=== PATIENT | female | born 1985 | race Caucasian/White ===

== ENCOUNTER 2016-06-26 17:51 | Emergency (ER) | payer OTHER ==
--- NOTE | 2016-06-26 18:48 | DIAGNOSTIC IMAGING REPORT ---
PROCEDURE: XR ELBOW 3 OR 4 VIEWS - RIGHT INDICATION: TRAUMA/INJURY TECHNIQUE: Four views. COMPARISON: Right elbow x-ray 08/04/2015 FINDINGS: Interval right elbow arthroplasty with radiolucency around the humeral and on the component measuring up to 1 mm. Removal of prior radial head prosthesis with soft tissue calcifications in the surgical site. There is no acute fracture or dislocation. IMPRESSION: 1. Right elbow arthroplasty without fracture. There is radiolucency around the humeral and ulnar components and loosening is a consideration. 2. Removal of radial head prosthesis
--- NOTE | 2016-06-26 19:02 | ED ORDER SUMMARY ---
..... Patient: IRAM BORDEN V OrderSheet [facility] VisitID: [id number] [address] [place] [address] 30y, F Registration Date/Time: 06/26/2016 ORDER SHEET Weight: 86.1 kg (stated) Allergies: Dilaudid GENERAL ORDERS: Elbow 3 or 4V Right Urgent (18:19 06/26/2016 EKoroleva P.A.-C) (18:35 Gaby) (Ack 18:38 Gregg) Splint (UE) (Right) (Long Arm) (19:02 06/26/2016 EKoroleva P.A.-C) (19:28 AMcQuoid ER Tech1) Sling - arm (19:29 06/26/2016 AMcQuoid ER Tech1 per protocol) (19:29 AMcQuoid ER Tech1) MEDICATION ORDERS: Hydrocodone-APAP PO 5/325 mg (NOW, HIGH ALERT MEDICATION) (18:35 06/26/2016 EKoroleva P.A.-C) (19:03 GMarshall R.N.) Zofran ODT PO 4 mg (NOW) (18:36 06/26/2016 EKoroleva P.A.-C) (19:04 GMarshall R.N.) IV FLUIDS: ORDER SHEET NOTES: [Electronically signed by Eleonora Sanford PSterlingASterling-C (00:18 06/27/2016)] [Electronically signed by Victor Hugo Wade R.N. (09:00 06/27/2016)] [Electronically signed by Victor Hugo Wade R.N. (09:02 06/27/2016)] [Electronically locked/signed by Victor Hugo Wade R.N. (09:00 06/27/2016)]
--- NOTE | 2016-06-26 19:02 | ED NURSING NOTES ---
Clinical Report - Nurses Merged With [facility] [address] [place] [address] 06/26/2016 17:51 Patient: IRAM BORDEN V TRIAGE Triage time 18:14. Acuity: LEVEL 3. Chief Complaint: INJURY TO RIGHT HAND and ELBOW. Alert. No acute distress. --18:24 Victor Hugo Wade R.N. 18:13 06/26/16. BP: 140/87. HR: 86. RR: 20. O2 saturation: 98%. Temp: 89.5 F. Pain level now 02/22. --18:24 Victor Hugo Wade R.N. Weight: 86.1 kg stated. Height/Length: 62 inches Per Patient. BMI: 34.8. --18:24 Victor Hugo Wade R.N. Medications Albuterol-Ipratropium Inhalation. ClonazePAM Oral. Effexor XR Oral 75 mg, BID. SEROquel Oral. Zofran ODT Oral. --18:19 Victor Hugo Wade R.N. Cyclobenzaprine HCl Oral. Methocarbamol Oral. --18:20 Victor Hugo Wade R.N. Allergies Dilaudid. Definite Severe(Anaphylaxis) --18:49 Victor Hugo Wade R.N. History Arrived by private vehicle. Historian: patient. ( Surgery on right elbow (total arthroplasty) in February. Slipped on ice this morning and fell on right elbow. Called (where she had surgery) they told her to come to ER). Treatment ABORIGINAL CEREMONIAL CELEBRANT: Splint. SOCIAL HX: Current every day smoker. No alcohol use or drug use. FALL RISK ASSESSMENT: Fall risk assessment completed. No fall risk identified. NUTRITIONAL RISK ASSESSMENT: The nutritional risk assessment revealed no deficiencies. FUNCTIONAL ASSESSMENT: Functional assessment: no impairments noted. LEARNING NEEDS ASSESSMENT: The learning needs assessment revealed no barriers. SKIN INTEGRITY ASSESSMENT: Skin integrity risk assessment completed. No skin integrity risk identified. --18:24 Victor Hugo Wade R.N. PROBLEMS: Asthma [Chronic]. 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 Depression [Chronic]. Hypertension [Chronic]. --18:21 Victor Hugo Wade R.N. Fall. Contusion. Sciatica. Back Pain. Cyclical vomiting syndrome. Gastroenteritis. Prior Injury, Same Area. Laceration. Tetanus Status. Sprain. Pyelonephritis. Lung Disease. UTI - Urinary Tract Infection. Constipation. URI. Pleurisy. Asthma. Hypertension. Dental Pain. Immunizations. Diarrhea. Vomiting. Abdominal Pain. LNMP - Last Normal Menstrual Period. --18:21 Victor Hugo Wade R.N. ADDITIONAL SURGERIES: Appendectomy. Cholecystectomy. . Elbow Rt. Fracture Repair. Hernia Repair. Right total elbow arthroplasty. Second surgery on right elbow. Shoulder Surgery. Tonsillectomy. --18:22 Victor Hugo Wade R.N. PHYSICAL ASSESSMENT GENERAL / NEURO / PSYCH: Alert. Appears in no acute distress. Appears in pain and anxious. ( decreased sensation right elbow). SKIN: Skin intact. Skin is warm and dry. --18:24 Victor Hugo Wade R.N. NURSING PROGRESS NOTES Patient identifiers checked. Call light placed in reach. Bed placed in lowest position. --18:25 Victor Hugo Wade R.N. 18:30. Patient walked to radiology with tech. --18:58 Victor Hugo Wade R.N. 18:45. Patient walked back to ED from radiology with tech. --18:59 Victor Hugo Wade R.N. 19:03 06/26/2016 Hydrocodone-APAP (Hydrocodone-Acetaminophen) PO 5/325 mg Tablets 1 tab given. Allergies verified. --19:03 Victor Hugo Wade R.N. 19:04 06/26/2016 Zofran ODT (Ondansetron) PO 4 mg given. Allergies verified. --19:04 Victor Hugo Wade R.N. Care transferred and report received (Victor Hugo, RN). --19:10 Jose Alejandro Park R.N. 19:20. Long arm fiberglass upper extremity splint applied to right arm by tech. Sling applied to right arm by cmm technician. --19:29 McQuoid, Soha, ER Tech1 Splint visually verified by provider. --19:30 McQuoid, Soha, ER Tech1. DISPOSITION / DISCHARGE Condition at departure: improved. The goals identified in the patient's plan of care were met. No learning barriers present. Discharge instructions provided and reviewed with the patient. Reviewed medication(s) side effects, precautions, dosing and course information. Prescription(s) given to the patient. Patient verbalized understanding. Written instructions provided in Pashto. The patient was discharged home and accompanied by family. She left the Emergency Department ambulatory and via private vehicle. Family member driving. FALL RISK ASSESSMENT: Fall risk assessment completed. No fall risk identified. --19:49 Jose Alejandro Park R.N. 19:47 06/26/16. BP: 134/92. HR: 95. RR: 16. O2 saturation: 97%. Temp: 98.8 F (oral). Pain level now: 08/23. --19:49 Jose Alejandro Park R.N. Departure time: 1948 PM. --19:49 Jose Alejandro Park R.N. Locked/Released at 06/27/2016 9:02 by Victor Hugo Wade R.N.
--- NOTE | 2016-06-26 19:02 | ED NURSING NOTES ---
Clinical Report - Nurses [facility] [address] [place] [address] 06/26/2016 17:51 Patient: IRAM BORDEN V TRIAGE Triage time 18:14. Acuity: LEVEL 3. Chief Complaint: INJURY TO RIGHT HAND and ELBOW. Alert. No acute distress. --18:24 Victor Hugo Wade R.N. 18:13 06/26/16. BP: 140/87. HR: 86. RR: 20. O2 saturation: 98%. Temp: 89.5 F. Pain level now 02/22. --18:24 Victor Hugo Wade R.N. Weight: 86.1 kg stated. Height/Length: 62 inches Per Patient. BMI: 34.8. --18:24 Victor Hugo Wade R.N. Medications Albuterol-Ipratropium Inhalation. ClonazePAM Oral. Effexor XR Oral 75 mg, BID. SEROquel Oral. Zofran ODT Oral. --18:19 Victor Hugo Wade R.N. Cyclobenzaprine HCl Oral. Methocarbamol Oral. --18:20 Victor Hugo Wade R.N. Allergies Dilaudid. Definite Severe(Anaphylaxis) --18:49 Victor Hugo Wade R.N. History Arrived by private vehicle. Historian: patient. ( Surgery on right elbow (total arthroplasty) in February. Slipped on ice this morning and fell on right elbow. Called (where she had surgery) they told her to come to ER). Treatment THREAD WEAVER: Splint. SOCIAL HX: Current every day smoker. No alcohol use or drug use. FALL RISK ASSESSMENT: Fall risk assessment completed. No fall risk identified. NUTRITIONAL RISK ASSESSMENT: The nutritional risk assessment revealed no deficiencies. FUNCTIONAL ASSESSMENT: Functional assessment: no impairments noted. LEARNING NEEDS ASSESSMENT: The learning needs assessment revealed no barriers. SKIN INTEGRITY ASSESSMENT: Skin integrity risk assessment completed. No skin integrity risk identified. --18:24 Victor Hugo Wade R.N. PROBLEMS: Asthma [Chronic]. 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 Depression [Chronic]. Hypertension [Chronic]. --18:21 Victor Hugo Wade R.N. Fall. Contusion. Sciatica. Back Pain. Cyclical vomiting syndrome. Gastroenteritis. Prior Injury, Same Area. Laceration. Tetanus Status. Sprain. Pyelonephritis. Lung Disease. UTI - Urinary Tract Infection. Constipation. URI. Pleurisy. Asthma. Hypertension. Dental Pain. Immunizations. Diarrhea. Vomiting. Abdominal Pain. LNMP - Last Normal Menstrual Period. --18:21 Victor Hugo Wade R.N. ADDITIONAL SURGERIES: Appendectomy. Cholecystectomy. . Elbow Rt. Fracture Repair. Hernia Repair. Right total elbow arthroplasty. Second surgery on right elbow. Shoulder Surgery. Tonsillectomy. --18:22 Victor Hugo Wade R.N. PHYSICAL ASSESSMENT GENERAL / NEURO / PSYCH: Alert. Appears in no acute distress. Appears in pain and anxious. ( decreased sensation right elbow). SKIN: Skin intact. Skin is warm and dry. --18:24 Victor Hugo Wade R.N. NURSING PROGRESS NOTES Patient identifiers checked. Call light placed in reach. Bed placed in lowest position. --18:25 Victor Hugo Wade R.N. 18:30. Patient walked to radiology with tech. --18:58 Victor Hugo Wade R.N. 18:45. Patient walked back to ED from radiology with tech. --18:59 Victor Hugo Wade R.N. 19:03 06/26/2016 Hydrocodone-APAP (Hydrocodone-Acetaminophen) PO 5/325 mg Tablets 1 tab given. Allergies verified. --19:03 Victor Hugo Wade R.N. 19:04 06/26/2016 Zofran ODT (Ondansetron) PO 4 mg given. Allergies verified. --19:04 Victor Hugo Wade R.N. Care transferred and report received (Victor Hugo, RN). --19:10 Jose Alejandro Park R.N. 19:20. Long arm fiberglass upper extremity splint applied to right arm by tech. Sling applied to right arm by instrument technician. --19:29 McQuoid, Soha, ER Tech1 Splint visually verified by provider. --19:30 McQuoid, Soha, ER Tech1. DISPOSITION / DISCHARGE Condition at departure: improved. The goals identified in the patient's plan of care were met. No learning barriers present. Discharge instructions provided and reviewed with the patient. Reviewed medication(s) side effects, precautions, dosing and course information. Prescription(s) given to the patient. Patient verbalized understanding. Written instructions provided in Turkmen. The patient was discharged home and accompanied by family. She left the Emergency Department ambulatory and via private vehicle. Family member driving. FALL RISK ASSESSMENT: Fall risk assessment completed. No fall risk identified. --19:49 Jose Alejandro Park R.N. 19:47 06/26/16. BP: 134/92. HR: 95. RR: 16. O2 saturation: 97%. Temp: 98.8 F (oral). Pain level now: 08/23. --19:49 Jose Alejandro Park R.N. Departure time: 1948 PM. --19:49 Jose Alejandro Park R.N. Locked/Released at 06/27/2016 9:02 by Victor Hugo Wade R.N.
--- NOTE | 2016-06-26 19:02 | ED ORDER SUMMARY ---
..... Patient: IRAM BORDEN V OrderSheet [facility] VisitID: [id number] [address] [place] [address] 30y, F Registration Date/Time: 06/26/2016 ORDER SHEET Weight: 86.1 kg (stated) Allergies: Dilaudid GENERAL ORDERS: Elbow 3 or 4V Right Urgent (18:19 06/26/2016 EKoroleva P.A.-C) (18:35 Gaby) (Ack 18:38 Gregg) Splint (UE) (Right) (Long Arm) (19:02 06/26/2016 EKoroleva P.A.-C) (19:28 AMcQuoid ER Tech1) Sling - arm (19:29 06/26/2016 AMcQuoid ER Tech1 per protocol) (19:29 AMcQuoid ER Tech1) MEDICATION ORDERS: Hydrocodone-APAP PO 5/325 mg (NOW, HIGH ALERT MEDICATION) (18:35 06/26/2016 EKoroleva P.A.-C) (19:03 GMarshall R.N.) Zofran ODT PO 4 mg (NOW) (18:36 06/26/2016 EKoroleva P.A.-C) (19:04 GMarshall R.N.) IV FLUIDS: ORDER SHEET NOTES: [Electronically signed by Eleonora Sanford PSterlingASterling-C (00:18 06/27/2016)] [Electronically signed by Victor Hugo Wade R.N. (09:00 06/27/2016)] [Electronically signed by Victor Hugo Wade R.N. (09:02 06/27/2016)] [Electronically locked/signed by Victor Hugo Wade R.N. (09:00 06/27/2016)]
--- NOTE | 2016-06-26 19:02 | ED CLINICAL REPORT ---
Clinical Report - Physicians/Mid Levels [facility] [address] [place] [address] 06/26/2016 17:51 Patient: IRAM BORDEN V Time Seen: 18:20 Jun 26 2016. Arrived- By private vehicle. Historian- patient. HISTORY OF PRESENT ILLNESS Chief Complaint: Injury to the right elbow. The injury happened just prior to arrival. Fell. She sustained a direct blow. Patient is experiencing moderate pain. Patient denies injury to the head. ( Patient has a multiple surgeries of the right elbow, most recent in February, and has had fair range of motion of the right elbow since, and physical therapy for such a few times a week. Fell onto the elbow today, grandma fall, slipped on ice. Reports now placed her arm in a sling, which appears he was not wearing. Reports some paresthesias to her left fifth and fourth digit, which she commonly had after surgery, resection is improving. Denies any other injury to the wrist, shoulder, head or neck.). REVIEW OF SYSTEMS The patient sustained a laceration. No tingling or numbness. All systems otherwise negative, except as recorded above. PAST HISTORY The patient's dominant hand is the right. She has had a prior injury to the same area. Tetanus immunization status is up-to-date. SOCIAL HISTORY Smoker- current status unknown. No alcohol use or drug use. ADDITIONAL NOTES The nursing notes have been reviewed. PHYSICAL EXAM Vital Signs: 06/26/2016 18:13 BP: 140/87. HR: 86. RR: 20. O2 saturation: 98%. Temp: 89.5 F. Appearance: Alert. No acute distress. but apparent distress. Does not appear to be anxious. Head: Head atraumatic. CVS: Normal heart rate and rhythm. Pulses normal. Respiratory: No respiratory distress. Breath sounds normal. Back: Normal inspection. No tenderness. No vertebral point tenderness or soft tissue tenderness. Skin: Skin intact. No cyanosis. Skin warm. Normal skin color. Skin not cool on palpation. No skin rash. Extremities: Upper extremity soft tissue tenderness present. No signs of infection present in the upper extremities. Right arm. No tenderness. Right elbow: mild tenderness located in the area of the radial head. Limited ROM. No ecchymosis or foreign body. No joint effusion. Right forearm. Right wrist. No tenderness or swelling. (lateral scar). Neuro, Vascular and Tendons: Vascular status intact. Motor intact. Neuro: Oriented X 3. (diminished sensation to right ulnar 4th digit, and right 5th digit radial and ulnar aspect). PROGRESS AND PROCEDURES Splint Application: Time: 00:17 Jun 27 2016. Fiberglass long arm splint applied to right arm. Reassessed extremity following splint application. Neurovascular intact. Follow-up recommended within 5 days. Fitted for crutches by the tech. Course of Care: Here in the ER, with paresthesias to the right fifth digit, with loosening of the screws, splint applied. No signs of open fracture. No signs of fracture. Patient stable. To follow-up with her orthopedics. Understands and agrees with plan. 06/26/2016 19:47 BP: 134/92. HR: 95. RR: 16. O2 saturation: 97%. Temp: 98.8 F. Pain level now: 4/10. Patient is stable. Symptoms better. Patient/family counseled. Disposition: Discharged. Condition: good. CLINICAL IMPRESSION Paresthesia (R.Upper Extremity). Contusion to the right elbow. (with loosening of hardware). INSTRUCTIONS Apply ice. Prescription Medications: Hydrocodone/APAP 5mg / 325mg: take 1 orally every 6 hours as needed for pain. Dispense twelve (12). No refill. Zofran (orally disintegrating tablets) 4 mg: take 1 orally every 6 hours for 3 days as needed for nausea. Dispense ten (10). No refill. Substitution is permissible. Follow-up: Follow up with your doctor in three days. (Electronically signed by Eleonora Sanford P.A.-C 06/27/2016 0:18)
--- NOTE | 2016-06-27 09:02 | ED MAR SUMMARY ---
..... Medication Administration Record [facility] [address] [place] [address] Patient: IRAM BORDEN V Visit ID: [id number] 30y, F Weight: 86.1 kg Height/Length: 62 in BMI: 34.8 ALLERGIES: Dilaudid Given 19:03 06/26/2016 Victor Hugo Wade R.N. Medication Administered: HYDROCODONE-APAP [PO] (HYDROCODONE-ACETAMINOPHEN), Dose: 1 tab 5/325 mg Tablets PO. Medication Ordered: Hydrocodone-APAP PO 5/325 mg (NOW, HIGH ALERT MEDICATION). Given 19:04 06/26/2016 Victor Hugo Wade RCyrus Medication Administered: ZOFRAN ODT [PO] (ONDANSETRON), Dose: 4 mg PO. Medication Ordered: Zofran ODT PO 4 mg (NOW).
--- NOTE | 2016-06-27 09:02 | ED MED RECONCILIATION SUMMARY ---
Patient: IRAM BORDEN V Medication Reconciliation Report [facility] VisitID: [id number] [address] [place] [address] 30y, F Registration Date/Time: 06/26/2016 Weight: 86.1 kg Height/Length: 62 in. BMI: 34.8 ALLERGIES: Dilaudid The patient's Home Medications are listed below: THE FOLLOWING MEDICATIONS NEED TO BE RECONCILED: Albuterol-Ipratropium Inhalation ClonazePAM Oral Cyclobenzaprine HCl Oral Effexor XR Oral 75 mg, BID Methocarbamol Oral SEROquel Oral Zofran ODT Oral The source(s) of the original Home Medication information: Not obtained. The following Medications were given to the patient in the Emergency Department: Hydrocodone-APAP [PO] PO 1 tab, administered: 06/26/2016 7:03:00 PM Zofran ODT [PO] PO 4 mg, administered: 06/26/2016 7:04:00 PM The following Medications were prescribed to the patient: Hydrocodone/APAP 5mg / 325mg: take 1 orally every 6 hours as needed for pain. Dispense twelve (12). No refill. -- Eleonora Sanford P.ASterling-Edith Zofran (orally disintegrating tablets) 4 mg: take 1 orally every 6 hours for 3 days as needed for nausea. Dispense ten (10). No refill. Substitution is permissible. -- Eleonora Sanford P.A.-C
--- NOTE | 2016-06-27 09:02 | ED MAR SUMMARY ---
..... Medication Administration Record [facility] [address] [place] [address] Patient: IRAM BORDEN V Visit ID: [id number] 30y, F Weight: 86.1 kg Height/Length: 62 in BMI: 34.8 ALLERGIES: Dilaudid Given 19:03 06/26/2016 Victor Hugo Wade R.N. Medication Administered: HYDROCODONE-APAP [PO] (HYDROCODONE-ACETAMINOPHEN), Dose: 1 tab 5/325 mg Tablets PO. Medication Ordered: Hydrocodone-APAP PO 5/325 mg (NOW, HIGH ALERT MEDICATION). Given 19:04 06/26/2016 Victor Hugo Wade RCyrus Medication Administered: ZOFRAN ODT [PO] (ONDANSETRON), Dose: 4 mg PO. Medication Ordered: Zofran ODT PO 4 mg (NOW).
--- NOTE | 2016-06-27 09:02 | ED DISCHARGE INSTRUCTIONS ---
Patient: IRMA BORDEN V General Instructions [facility] VisitID: [id number] [address] [place] [address] 30y, F Registration Date/Time: 06/26/2016 Paresthesia (R.Upper Extremity). Contusion to the right elbow. (with loosening of hardware). INSTRUCTIONS Apply ice. Prescription Medications: Hydrocodone/APAP 5mg / 325mg: take 1 orally every 6 hours as needed for pain. Dispense twelve (12). No refill. Zofran (orally disintegrating tablets) 4 mg: take 1 orally every 6 hours for 3 days as needed for nausea. Dispense ten (10). No refill. Substitution is permissible. Follow-up: Follow up with your doctor in three days. ADDITIONAL INFORMATION Contusion:Upper Extremity You have a contusion of your upper extremity (arm, wrist, hand or fingers). This causes local pain, swelling and sometimes bruising. There are no broken bones. This injury takes a few days to a few weeks to heal. A sling may be provided for comfort and arm support. Home Care: 1) Keep your arm elevated to reduce pain and swelling. This is very important during the first 48 hours. 2) Apply an ice pack (ice cubes in a plastic bag, wrapped in a towel) over the injured area for 20 minutes every 1-2 hours the first day for pain relief. Continue this 3-4 times a day until the pain and swelling goes away. 3) You may use acetaminophen (Tylenol) or ibuprofen (Motrin, Advil) to control pain, unless another pain medicine was prescribed. [ NOTE : If you have chronic liver or kidney disease or ever had a stomach ulcer or GI bleeding, talk with your doctor before using these medicines.] 4) If a sling was provided, you may remove it to shower or bathe. Do not wear it for more than one week or it may cause joint stiffness. Follow Up with your doctor or this facility if you are not starting to improve within the next THREE days. [NOTE: If X-rays were taken, they will be reviewed by a radiologist. You will be notified of any new findings that may affect your care.] Get Prompt Medical Attention if any of the following occur: -- Pain or swelling increases -- Redness, warmth or drainage -- Hand or fingers becomes cold, blue, numb or tingly Paraesthesias Paraesthesia refers to a burning or prickling sensation that is sometimes felt in the hands, arms, legs or feet. It can also occur in other parts of the body. It can also feel like tingling or numbness, skin crawling or itching.The sensation is usually painless. Most people have experienced pins and needles. This feeling happens when legs have been crossed for too long and pressure is placed on a nerve. This is a temporary paraesthesia. It quickly goes away once the pressure is relieved. There are many possible causes for chronic paraesthesias. These include such disorders as stroke, herniated disk (pressing on a nerve), trapped nerve in the shoulder, elbow or wrist (such as carpal tunnel syndrome), vitamin deficiencies or even certain medicines. Laboratory tests are needed to make an accurate diagnosis. These tests may include blood tests, X-ray, CT (computerized tomography) scan or a muscle test (electromyography).Depending on the cause, treatment may include physical therapy. Home Care: Do not make any changes to your medicines without advice from your doctor. If vitamins have been prescribed, remember to take them daily at the recommended dose. Because of a decrease in feeling, a numb hand or foot may be more prone to injury. Take care to protect these areas from cuts, bumps, bruises, gaffney or other injury. Keep your nails trimmed and wash your hands and feet often. Wear shoes that fit well to avoid pressure points, blisters and ulcers. Look at your hands and feet carefully (including the soles of your feet and between your toes) at least once a week and notify your doctor of any open wounds or signs of infection. Follow Up with your doctor or as advised by our staff. You may need further testing to determine the exact cause of your paraesthesia. [NOTE: If blood tests, X-ray, CT scan or electromyography were done, specialists will review them. You will be notified of any new findings that may affect your care.] Get Prompt Medical Attention if any of the following occur: Numbness or weakness of the face, one arm or one leg Slurred speech, confusion, trouble speaking, walking or seeing Severe headache, fainting spell, dizziness or seizure Chest, arm, neck or upper back pain Loss of bladder or bowel control Open wound with redness, swelling or pus Hydrocodone Bitartrate, Acetaminophen Oral tablet What is this medicine? ACETAMINOPHEN; HYDROCODONE (a set a MARCELLA debora fen; charley droe KOE done) is a pain reliever. It is used to treat mild to moderate pain. How should I use this medicine? Take this medicine by mouth. Swallow it with a full glass of water. Follow the directions on the prescription label. If the medicine upsets your stomach, take the medicine with food or milk. Do not take more than you are told to take. Talk to your header boss regarding the use of this medicine in children. This medicine is not approved for use in children. What side effects may I notice from receiving this medicine? Side effects that you should report to your doctor or health workforce investment act career manager as soon as possible: allergic reactions like skin rash, itching or hives, swelling of the face, lips, or tongue breathing problems confusion feeling faint or lightheaded, falls stomach pain yellowing of the eyes or skin Side effects that usually do not require medical attention (report to your doctor or health workforce investment act career manager if they continue or are bothersome): nausea, vomiting stomach upset What may interact with this medicine? alcohol antihistamines isoniazid medicines for depression, anxiety, or psychotic disturbances medicines for sleep muscle relaxants naltrexone narcotic medicines (opiates) for pain phenobarbital ritonavir tramadol What if I miss a dose? If you miss a dose, take it as soon as you can. If it is almost time for your next dose, take only that dose. Do not take double or extra doses. Where should I keep my medicine? Keep out of the reach of children. This medicine can be abused. Keep your medicine in a safe place to protect it from theft. Do not share this medicine with anyone. Selling or giving away this medicine is dangerous and against the law. Store at room temperature between 15 and 30 degrees C (59 and 86 degrees F). Protect from light. Keep container tightly closed. Throw away any unused medicine after the expiration date. Discard unused medicine and used packaging carefully. Pets and children can be harmed if they find used or lost packages. What should I tell my health care provider before I take this medicine? They need to know if you have any of these conditions: brain tumor Crohn's disease, inflammatory bowel disease, or ulcerative colitis drink more than 3 alcohol-containing drinks per day drug abuse or addiction head injury heart or circulation problems kidney disease or problems going to the bathroom liver disease lung disease, asthma, or breathing problems an unusual or allergic reaction to acetaminophen, hydrocodone, other opioid analgesics, other medicines, foods, dyes, or preservatives or trying to get breast-feeding What should I watch for while using this medicine? Tell your doctor or health workforce investment act career manager if your pain does not go away, if it gets worse, or if you have new or a different type of pain. You may develop tolerance to the medicine. Tolerance means that you will need a higher dose of the medicine for pain relief. Tolerance is normal and is expected if you take the medicine for a long time. Do not suddenly stop taking your medicine because you may develop a severe reaction. Your body becomes used to the medicine. This does NOT mean you are addicted. Addiction is a behavior related to getting and using a drug for a non-medical reason. If you have pain, you have a medical reason to take pain medicine. Your doctor will tell you how much medicine to take. If your doctor wants you to stop the medicine, the dose will be slowly lowered over time to avoid any side effects. You may get drowsy or dizzy when you first start taking the medicine or change doses. Do not drive, use machinery, or do anything that may be dangerous until you know how the medicine affects you. Stand or sit up slowly. There are different types of narcotic medicines (opiates) for pain. If you take more than one type at the same time, you may have more side effects. Give your health care provider a list of all medicines you use. Your doctor will tell you how much medicine to take. Do not take more medicine than directed. Call emergency for help if you have problems breathing. The medicine will cause constipation. Try to have a bowel movement at least every 2 to 3 days. If you do not have a bowel movement for 3 days, call your doctor or health workforce investment act career manager. Too much acetaminophen can be very dangerous. Do not take Tylenol (acetaminophen) or medicines that contain acetaminophen with this medicine. Many non-prescription medicines contain acetaminophen. Always read the labels carefully. Ondansetron Hydrochloride Oral tablet What is this medicine? ONDANSETRON (on MIKE se frances) is used to treat nausea and vomiting caused by chemotherapy. It is also used to prevent or treat nausea and vomiting after surgery. How should I use this medicine? Take this medicine by mouth with a glass of water. Follow the directions on your prescription label. Take your doses at regular intervals. Do not take your medicine more often than directed. Talk to your header boss regarding the use of this medicine in children. Special care may be needed. What side effects may I notice from receiving this medicine? Side effects that you should report to your doctor or health workforce investment act career manager as soon as possible: allergic reactions like skin rash, itching or hives, swelling of the face, lips or tongue breathing problems dizziness fast or irregular heartbeat feeling faint or lightheaded, falls fever and chills swelling of the hands or feet tightness in the chest Side effects that usually do not require medical attention (report to your doctor or health workforce investment act career manager if they continue or are bothersome): constipation or diarrhea headache What may interact with this medicine? Do not take this medicine with any of the following medications: -apomorphine -cisapride -dofetilide -dronedarone -pimozide -thioridazine -ziprasidone This medicine may also interact with the following medications: -carbamazepine -phenytoin -rifampicin -tramadol -other medicines that prolong the QT interval (cause an abnormal heart rhythm) What if I miss a dose? If you miss a dose, take it as soon as you can. If it is almost time for your next dose, take only that dose. Do not take double or extra doses. Where should I keep my medicine? Keep out of the reach of children. Store between 2 and 30 degrees C (36 and 86 degrees F). Throw away any unused medicine after the expiration date. What should I tell my health care provider before I take this medicine? They need to know if you have any of these conditions: heart disease history of irregular heartbeat liver disease low levels of magnesium or potassium in the blood an unusual or allergic reaction to ondansetron, granisetron, other medicines, foods, dyes, or preservatives or trying to get breast-feeding What should I watch for while using this medicine? Check with your doctor or health workforce investment act career manager right away if you have any sign of an allergic reaction. You have been given the following additional information: Contusion, Upper Extremity Paraesthesias Hydrocodone Bitartrate, Acetaminophen Oral tablet Ondansetron Hydrochloride Oral tablet (Electronically signed by Eleonora Sanford P.A.-C 06/27/2016 0:18)
--- NOTE | 2016-06-27 09:02 | ED MED RECONCILIATION SUMMARY ---
Patient: IRAM BORDEN V Medication Reconciliation Report [facility] VisitID: [id number] [address] [place] [address] 30y, F Registration Date/Time: 06/26/2016 Weight: 86.1 kg Height/Length: 62 in. BMI: 34.8 ALLERGIES: Dilaudid The patient's Home Medications are listed below: THE FOLLOWING MEDICATIONS NEED TO BE RECONCILED: Albuterol-Ipratropium Inhalation ClonazePAM Oral Cyclobenzaprine HCl Oral Effexor XR Oral 75 mg, BID Methocarbamol Oral SEROquel Oral Zofran ODT Oral The source(s) of the original Home Medication information: Not obtained. The following Medications were given to the patient in the Emergency Department: Hydrocodone-APAP [PO] PO 1 tab, administered: 06/26/2016 7:03:00 PM Zofran ODT [PO] PO 4 mg, administered: 06/26/2016 7:04:00 PM The following Medications were prescribed to the patient: Hydrocodone/APAP 5mg / 325mg: take 1 orally every 6 hours as needed for pain. Dispense twelve (12). No refill. -- Eleonora Sanford P.ASterling-Edith Zofran (orally disintegrating tablets) 4 mg: take 1 orally every 6 hours for 3 days as needed for nausea. Dispense ten (10). No refill. Substitution is permissible. -- Eleonora Sanford P.A.-C
== END 2016-06-26 19:48 | disposition home or self-care (01) ==
LOC: ED SRH 17:51
DX: S50.01XA Contusion of right elbow, initial encounter (principal); R20.8 Other disturbances of skin sensation; T84.190A Other mechanical complication of internal fixation device of right humerus, initial encounter; W00.0XXA Fall on same level due to ice and snow, initial encounter; Y93.9 Activity, unspecified; Y99.9 Unspecified external cause status; Y92.9 Unspecified place or not applicable